=== PATIENT | male | born 1955 | race Caucasian/White ===

== ENCOUNTER 2025-04-30 13:36 | Emergency (ER) | payer MEDICARE, MEDICAID ==
[~2025-04-30] VITALS: Ht 185.4 cm; Wt 82.8 kg
[2025-04-30 13:43] VITALS: BP 160/70; PULSE 90; RESP 18; TEMP 97.6; O2SAT 96
[2025-04-30 15:34] LABS: MEAN PLATELET VOLUME 9.2 FL (7.4-10.4); RED CELL DISTRIBUTION WIDTH 14.7 % (11.5-14.5)
[2025-04-30 15:52] LABS: CREATININE 0.84 MG/DL (0.60-1.10); TOTAL CARBON DIOXIDE 28.0 MMOL/L (24-32); eCRCL 94 ML/MIN; eGFR > 90 ML/MIN
--- NOTE | 2025-04-30 17:42 | Physician Documentation ---
History of Present Illness Chief Complaint: Abdominal Pain Stated Complaint: ABD PAIN HPI This is a 69-year-old male who presents with concern for multiple lumps on his right abdomen he believes maybe hernias, patient reports discomfort without severe pain. Patient reports no other acute symptoms or concerns. Medication Reconciliation Allergies: Coded Allergies: No Known Allergies (Unverified , 04/30/25) Review of Systems ROS As stated above in the HPI, otherwise all systems are reviewed and negative. Physical Exam Vital Signs: Temperature: 97.6, Source: Temporal, Heart Rate: 90, Respiratory Rate: 18, BP: 160/70, Pulse Oximetry: 96, Weight: 82.800 Oxygen Flow Rate: 0 Physical Exam VITALS: Reviewed and as above. GENERAL: Alert, nontoxic appearing, no apparent distress. RESPIRATORY: No increased work of breathing, no respiratory distress, speaking in full clear sentences Progress Results/Orders Results/Orders Vital Signs 04/30/25 13:43 Temp 97.6 Pulse 90 Resp 18 B/P (MAP) 160/70 Pulse Ox 96 O2 Flow Rate 0 Laboratory Tests Test 04/30/25 15:12 White Blood Count 6.2 Red Blood Count 3.96 L Hemoglobin 13.1 L Hematocrit 38.3 L Mean Corpuscular Volume 96.8 Mean Corpuscular Hemoglobin 33.2 H Mean Corpuscular Hemoglobin Concent 34.3 Red Cell Distribution Width 14.7 H Platelet Count 80 L Mean Platelet Volume 9.2 Neutrophils (%) (Auto) 70.1 Lymphocytes (%) (Auto) 16.8 L Monocytes (%) (Auto) 7.1 Eosinophils (%) (Auto) 5.6 Basophils (%) (Auto) 0.4 Neutrophils # (Auto) 4.4 Lymphocytes # (Auto) 1.0 L Monocytes # (Auto) 0.4 Eosinophils # (Auto) 0.3 Basophils # (Auto) 0.0 CBC Comment Sodium Level 139 Potassium Level 3.8 Chloride Level 106 Carbon Dioxide Level 28.0 Anion Gap 5 L Blood Urea Nitrogen 16 Creatinine 0.84 Estimated GFR/1.73 m2 > 90 BUN/Creatinine Ratio 19.0 Glucose Level 103 Calcium Level 8.6 Total Bilirubin 1.0 Aspartate Amino Transf (AST/SGOT) 19 Alanine Aminotransferase (ALT/SGPT) 31 Alkaline Phosphatase 158 H Total Protein 8.2 Albumin 3.6 Globulin 4.6 H Albumin/Globulin Ratio 0.8 L Amylase Level 56 Lipase 42 Chemistry Comments Medical Decision Making Findings This well-appearing 69-year-old male presented with concern for lumps to his right abdomen use concerned maybe hernias. Patient did not describe pain as severe and is visibly in no acute distress. MSE performed in triage and patient returned to ED lobby by nursing staff to await available ED room. To have eloped from lobby. Differential Dx:Considerations: Include: AAA, Aortic dissection, Appendicitis, Bowel obstruction, Constipation, Diverticular disease, Gastritis/PUD, Hernia, Inflammatory BD, Ischemic bowel, Urinary tract infection Departure Disposition: LEFT AWOL/ELOPED Impression: Primary Impression: Abdominal pain Qualified Codes: R10.9 - Unspecified abdominal pain Referrals: NO PRIMARY CARE PROVIDER (PCP) Signature Scribe Signature: No scribe Attestation: The note accurately reflects work and decisions made by me.LI Navarro 04/30/25 17:43 BG EASON Apr 30, 2025 17:42
== END 2025-04-30 20:34 | disposition left against medical advice (07) ==
LOC: ER 13:37
DX: R10.9 Unspecified abdominal pain (principal)
CPT/HCPCS: 36415; 80053; 82150; 83690; 85025; 99283

== ENCOUNTER 2025-05-01 01:43 | Emergency (ER) | payer MEDICARE, MEDICAID ==
[~2025-05-01] VITALS: Ht 185.4 cm; Wt 83.4 kg
[2025-05-01 01:49] VITALS: TEMP 99
--- NOTE | 2025-05-01 03:01 | Physician Documentation ---
History of Present Illness ~ General Chief Complaint: See Chief Complaint Stated Complaint: ABD PAIN Time Seen by MD: 03:00 Mode of Arrival: POV, Ambulatory History of Present Illness Initial Comments Patient presents to the emergency room for evaluation. He told the triage nurse he is concerned of hernias however upon arrival to patient's exam room he states that he is fine and would just like to leave. Medication Reconciliation Allergies: Coded Allergies: No Known Allergies (Unverified , 04/30/25) Review of Systems ROS All review of systems negative except as per HPI Physical Exam Physical Exam Vital Signs: Temperature: 99.0, Source: Oral, Heart Rate: 117, Respiratory Rate: 16, BP: 136/85, Pulse Oximetry: 95, Weight: 83.400 Oxygen Flow Rate: 0 Physical Exam General: Patient is awake, alert, oriented x4 in no acute distress and well appearing.~ Head: Normocephalic and atraumatic. Eyes: Conjunctival normal. EOMI. PERRL. ENT: Mucous membranes moist. Neck: Supple, trachea is midline. Chest: Clear to auscultation bilaterally without rales, rhonchi, or wheezes. There is no accessory muscle use or retractions. Cardiac: RRR without murmurs, gallops, or rubs. Progress Results/Orders Results/Orders Vital Signs 05/01/25 05/01/25 05/01/25 01:49 02:12 02:20 Temp 99.0 Pulse 110 117 Resp 18 16 16 B/P (MAP) 130/68 136/85 (102) Pulse Ox 94 95 O2 Flow Rate 0 0 Medical Decision Making Findings Patient presents to the emergency room for evaluation as per HPI. Differentials include hernias, anxiety, boredom, malingering. Patient is only asking to go therefore I will kahlil his request. Mild tachycardia noted. Patient that has standing at his doorway smiling requesting to leave Departure Disposition: 01 HOME / SELF CARE / HOMELESS Impression: Primary Impression: General medical exam Condition: Stable Discharge Instructions: General Discharge Instructions Referrals: NO PRIMARY CARE PROVIDER (PCP) Signature Scribe Signature: No scribe Attestation: The note accurately reflects work and decisions made by me.Ousmane Reynoso MD 05/01/25 03:03 OUSMANE REYNOSO MD May 01, 2025 03:01
[2025-05-01 03:04] VITALS: BP 152/95; PULSE 68; RESP 16; O2SAT 93
== END 2025-05-01 03:06 | disposition home or self-care (01) ==
LOC: ER 01:44
DX: Z00.00 Encounter for general adult medical examination without abnormal findings (principal)
CPT/HCPCS: 99282